=== PATIENT | female | born 1975 | race Caucasian/White ===

== ENCOUNTER → 2021-06-03 11:05 | Outpatient (BNVA) | payer MEDICAID, SELFPAY | PROVIDERS: Family Provider Nurse Practitioner; PCP Physician Assistant; Visit Provider Family Medicine | DX: M89.8X1 Other specified disorders of bone, shoulder (principal); I10 Essential (primary) hypertension; E11.9 Type 2 diabetes mellitus without complications; E78.5 Hyperlipidemia, unspecified | CPT/HCPCS: 73000; 80053; 80061; 83036; 83721 ==

== ENCOUNTER 2021-08-05 09:31 | Outpatient (CLI) | payer MEDICAID, SELFPAY ==
[2021-08-05 09:47] VITALS: BMI 34.4
--- NOTE | 2021-08-05 09:47 | ECG_ITS ---
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 Interpretive Statements NAME OF STUDY: EXERCISE SESTAMIBI STRESS TEST INDICATION: Chest pain, family history of coronary artery disease Baseline blood pressure of 127/80 mm Hg, heart rate of 85 beats per minute and oxygen saturation of 96%. EKG showed normal sinus rhythm, normal axis with nonspecific T wave inversion in lead III and V3. The patient exercised for 7 minutes 40 seconds on a standard Abraham protocol. Patient attained a maximum heart rate of 168 beats per minute(96% of the maximum predicted heart rate) with a blood pressure at the peak exercise of 195/75 mm Hg and oxygen saturation 95%. The EKG at the peak exercise revealed sinus tachycardia with no significant ST-T wave changes. Patient did not have any chest pain or any significant arrhythmis with the exercise. The study was terminated due to maximal effort. During the recovery phase, there were no new changes. Early in recovery blood pressure increased to 233/64 mmHg Blood pressure at the end of the recovery phase was 123/80 mm Hg with a heart rate of 102 beats per minute and oxygen saturation of 98%. CONCLUSION: 1. Normal EKG response to treadmill exercise. 2. No exercise-induced chest pain or cardiac arrhythmia 3. Excellent exercise tolerance, attained a maximum of 10.2 METs. Maximum VO2 of 35.7 mL/kg/min. 4. Baseline normal blood pressure with normal response to exercise. 5. Perfusion scan will be documented separately. Electronically Signed On 08-09-2021 15:50:36 CDT by Sandra Sunshine M.D. [id number]
--- NOTE | 2021-08-05 09:48 | NMCV_ITS ---
NM svitlana perf SPECT r/s* [id number] Maria Isabel Torres Age: 45 Gender: F : 1975 Exam Date: 08/05/2021 10:43 Ordering Phys: Sandra Sunshine MD ([email or web address]) Technologist: FELIPE Osorio Exam Location: [facility] Indications: CHEST PAIN STRESS TEST Please see separate stress test report in [facility] for full findings IMAGE PROTOCOL Rest/Stress 1 Exercise Day Radiopharmaceutical Dose (mCi) Administration Site Administered by Rest: Tc-99m 10.3 IV FELIPE Alcantara Sestamibi Stress:Tc-99m 32.7 IV FELIPE Alcantara Sestamibi Rest: 05-Aug-2021 60 Discovery 630 Stress: 05-Aug-2021 15 Discovery 630 Radiopharmaceutical was injected at 89 % maximum heart rate. Images obtained in supine and prone position. SPECT RESULTS Technical Quality: Excellent Raw Data Analysis: Normal Image Corrections: No attenuation or motion correction applied Summed Stress Score: 0 Summed Rest Score: 1 Summed Difference Score: 0 PERFUSION FINDINGS SPECT images demonstrate homogeneous tracer distribution throughout the myocardium. FUNCTIONAL RESULTS (calculated via Gated SPECT) Stress Image LV EF (%): 62 Stress EDV (mL):97 TID: 0.9 Stress ESV (mL):37 FUNCTIONAL FINDINGS: The left ventricle is normal in size. Transient Ischemia Dilatation of 0.9. There is normal left ventricular systolic function. The left ventricular ejection fraction is normal with a value of 62%. There is normal left ventricular wall thickening. Normal end diastolic and end systolic volumes. IMPRESSIONS 1. Myocardial perfusion imaging is normal. 2. Overall left ventricular systolic function is normal without regional wall motion abnormalities, LVEF=62%. 3. EKG portion of the study will be reported separately. Sandra Sunshine MD (Electronically Signed) Final Date: 09 August 2021 00:13 S
[2021-08-05 12:15] VITALS: BP 139/78; PULSE 100
== END 2021-08-05 09:32 | disposition home or self-care (01) ==
PROVIDERS: PCP Family Medicine; Visit Provider Internal Medicine Cardiovascular Disease
DX: R07.9 Chest pain, unspecified (principal); Z82.49 Family history of ischemic heart disease and other diseases of the circulatory system
CPT/HCPCS: 78452; 93017; A9500

== ENCOUNTER → 2021-09-22 12:50 | Outpatient (BNVA) | payer MEDICAID, SELFPAY | PROVIDERS: PCP Family Medicine; Visit Provider Emergency Medicine | DX: M89.8X1 Other specified disorders of bone, shoulder (principal); M25.512 Pain in left shoulder; M19.012 Primary osteoarthritis, left shoulder | CPT/HCPCS: 73000; 73030 ==

== ENCOUNTER → 2021-09-24 08:47 | Outpatient (BNVA) | payer MEDICAID, SELFPAY | PROVIDERS: PCP Family Medicine; Visit Provider Internal Medicine Cardiovascular Disease | DX: I25.9 Chronic ischemic heart disease, unspecified (principal); I10 Essential (primary) hypertension; Z82.49 Family history of ischemic heart disease and other diseases of the circulatory system; F17.200 Nicotine dependence, unspecified, uncomplicated | CPT/HCPCS: 99214 ==

== ENCOUNTER → 2021-09-29 08:57 | Outpatient (BNVA) | payer MEDICAID, SELFPAY | PROVIDERS: PCP Family Medicine; Visit Provider Family Medicine | DX: M19.042 Primary osteoarthritis, left hand (principal); M19.041 Primary osteoarthritis, right hand; K21.9 Gastro-esophageal reflux disease without esophagitis; I10 Essential (primary) hypertension; F32.A Depression, unspecified; M25.50 Pain in unspecified joint; E11.9 Type 2 diabetes mellitus without complications | CPT/HCPCS: 73130; 80048; 83036; 83735 ==

== ENCOUNTER 2021-11-08 08:56 | Outpatient (CLI) | payer MEDICAID, SELFPAY ==
--- NOTE | 2021-11-08 09:30 | MR_ITS ---
WS: [id number] MRI LEFT SHOULDER NONCONTRAST TECHNIQUE: Sagittal T2, coronal T1, T2 and proton density imaging. Axial gradient PDE imaging. CLINICAL INFORMATION: M89.8X1 - Other specified disorders of bone, shoulder COMPARISON: Radiograph September 22, 2021 FINDINGS: Moderate degenerative arthritis AC joint with edema. Small amount of subacromial/subdeltoid fluid. Sy novial thickening. Mild downsloping acromion with slight subacromial spurring. Mild chronic thinning of the distal supraspinatus. Normal infraspinatus. Normal teres minor. Intrasubstance partial tear in volving the distal subscapularis. Normal biceps tendon in the bicipital groove. Normal biceps labral anchor. Small amount of tendinopat hy intra-articular biceps tendon. Small lobulated paralabral cyst along the posterior superior glenoi d extending into the spinoglenoid notch. This measures approximately 1.7 x 0.8 x 0.5 cm. MR/MR shoulder LT wo con* [id number] IMPRESSION: 1. Moderate degenerative arthritis AC joint with mild edema and mild downslopi ng acromion. Slight subacromial spurring. 2. Chronic thinning of the supraspinatus which otherwise appears intact. 3. Intrasubstance tear involving the subscapularis with T2 signal abnormality. 4. Normal biceps tendon in the bicipital groove. 5. Tendinopathy involving the intra-articular biceps tendon. 6. Small lobulated paralabral cyst along the posterior superior glenoid extend ing into the spinoglenoid notch. This measures approximately 1.7 x 0.8 x 0.5 cm .
== END 2021-11-08 08:57 | disposition home or self-care (01) ==
PROVIDERS: PCP Family Medicine; Visit Provider Emergency Medicine
DX: M25.512 Pain in left shoulder (principal); M89.8X1 Other specified disorders of bone, shoulder; S46.012A Strain of muscle(s) and tendon(s) of the rotator cuff of left shoulder, initial encounter; M75.22 Bicipital tendinitis, left shoulder; M71.312 Other bursal cyst, left shoulder; X58.XXXA Exposure to other specified factors, initial encounter
CPT/HCPCS: 73221

== ENCOUNTER → 2021-12-28 10:12 | Outpatient (BNVA) | payer MEDICAID, SELFPAY | PROVIDERS: PCP Family Medicine; Visit Provider Family Medicine | DX: I10 Essential (primary) hypertension (principal); E11.9 Type 2 diabetes mellitus without complications; M19.041 Primary osteoarthritis, right hand; M19.042 Primary osteoarthritis, left hand; K21.9 Gastro-esophageal reflux disease without esophagitis; H65.90 Unspecified nonsuppurative otitis media, unspecified ear; M25.512 Pain in left shoulder | CPT/HCPCS: 80048; 83036 ==

== ENCOUNTER → 2022-01-26 11:02 | Outpatient (BNVA) | payer MEDICAID, SELFPAY | PROVIDERS: PCP Family Medicine; Visit Provider Family Medicine | DX: E87.6 Hypokalemia (principal) | CPT/HCPCS: 80048 ==

== ENCOUNTER 2022-02-02 07:24 | Day surgery (SDC) | payer MEDICAID, SELFPAY ==
[2022-01-31 10:45] VITALS: BMI 33.3
[2022-02-02 07:48] VITALS: BP 104/71; PULSE 94; RESP 18; TEMP 36.4; O2SAT 95
[2022-02-02] MEDS: sodium chloride 0.9% 1,000 ML 30 ML IV (07:52)
[2022-02-02 07:55] LABS: Glucose Point of Care 142 mg/dL (70-110)
--- NOTE | 2022-02-02 08:28 | W.PM.OPSFHP ---
Same Day Surgery H&P Indication for Procedure/HPI DATE OF PROCEDURE: February 02, 2022 CHIEF COMPLAINT/INDICATIONFOR SURGICAL PROCEDURE: Change in bowel habits PREOP DIAGNOSIS: Change in bowel habit PLANNED PROCEDURE: Operation Date: 02/02/22 09:00 Proposed Procedures p [address]140 EGD, [address] Colonoscopy K21.9,R19.7(Not Applicable) - Audie Beyer MD s Colonoscopy(Not Applicable) - Audie Beyer MD 12/20/2021 This is a pleasant 45 years old female patient referred to my practice with history of chronic diarrhea. Patient reports history of diarrhea, nonbloody in nature, has been going on for quite some time.? Patient denies history of recent travels, antibiotics, change in medications, questionable source of water, no history of sick contacts, no history of thyroid disorders.? Her gallbladder is removed.? She also complains of abdominal pain for the past month or so nothing seems to make it better is not being referred and has been more in the center of her abdomen. 02/02/2022 Patient comes today for diagnostic EGD and colonoscopy. ROS All systems have been reviewed negative except as for the above or per problem list. Medications/Allergies* Home Medications Medication Instructions Recorded Confirmed Type Vitamin D3 5,000 units PO DAILY 02/18/21 02/02/22 History Allergies/Adverse Reactions Allergy/AdvReac Type Severity Reaction Status Date / Time No Known Allergies Allergy Verified 02/02/22 08:29 Current Medications: Generic Name Dose Route Start Last Admin Trade Name Freq PRN Reason Stop Dose Admin Sodium Chloride 1,000 mls @ 30 mls/hr 02/02/22 07:45 02/02/22 07:52 Sodium Chloride 0.9% IV 30 mls/hr .Q24H WOO Administration Pertinent History/Comorbid Conditions* Medical History (Updated 12/21/21 @ 16:42 by Audie Beyer MD) Diabetes mellitus metfromin intolerance Dyslipidemia Family history of coronary artery disease occurring prior to 55 years of age GERD (gastroesophageal reflux disease) HTN (hypertension) Surgical History (Updated 02/18/21 @ 13:31 by Sandra Sunshine MD) History of hysteroscopy Hx of cholecystectomy Family History Family/Other, early 50's from heart problems Father, [place] x2, htn age 49 from [place] Social History Smoking and tobacco status: current every day smoker Alcohol intake: never Pertinent Exam Findings alert, oriented x 3, regular rate & rhythm and procedure specific exam findings (Abdominal exam nontender nondistended soft) Recommendations Surgery/Procedure today (EGD and colonoscopy with possible biopsy) Coding Level of Care Code Acute 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
--- NOTE | 2022-02-02 09:30 | ANES.PREANE2 ---
Pre-Anesthetic Assessment Height/Weight: Height 1.7 m Weight 96.615 kg Temp Pulse Resp BP Pulse Ox O2 Del Method 97.5 F L 94 18 104/71 95 02/02/22 07:48 02/02/22 07:48 02/02/22 07:48 02/02/22 07:48 02/02/22 07:48 02/02/22 07:48 Preop Diagnosis: Change in bowel habit Operation Date: 02/02/22 09:00 Proposed Procedures p 52651 EGD, 42406 Colonoscopy K21.9,R19.7(Not Applicable) - Audie Beyer MD s Colonoscopy(Not Applicable) - Audie Beyer MD Familial anesthetic complications: none Was Beta Rodriguez taken within 24 hours: N/A Was Clonidine taken within 24 hours: N/A Last intake: Intake Last Liquid Date 02/01/22 Last Liquid Time 23:55 Last Solid Date 01/31/22 Last Solid Time 22:00 Social Tobacco and No alcohol Exam alert, oriented x 3 and regular rate & rhythm Airway Submandibular: within normal limits Cervical ROM: within normal limits Mallampati: Class II Dentition: chipped Pulmonary Chronic Obstructive Pulmonary Disease CV/HEM Hypertension GI Gastroesophageal Reflux Disease Metabolic Diabetes Mellitus, Hyperlipidemia and Morbid Obesity [facility] Osteoarthritis/DJD Anesthetic Plan ASA status: 3 Anesthesia: MAC Medications/Allergies Home Medications Medication Instructions Recorded Confirmed Last Taken Type Vitamin D3 5,000 units PO DAILY 02/18/21 02/02/22 02/01/22 History duloxetine 60 mg capsule,delayed 120 mg PO DAILY 90 days #180 caps 09/29/21 02/02/22 02/01/22 Rx release (Cymbalta) loratadine 10 mg tablet 10 mg PO DAILY 90 days #90 tabs 09/29/21 02/02/22 02/01/22 Rx pantoprazole 40 mg tablet,delayed 40 mg PO BID 30 days #60 tabs 12/01/21 02/02/22 02/01/22 Rx release glipizide 2.5 mg tablet, extended 2.5 mg PO DAILY 30 days #30 tabs 12/28/21 02/02/22 02/01/22 Rx release 24 hr hydrochlorothiazide 25 mg tablet 37.5 mg PO DAILY 90 days #135 tabs 12/28/21 02/02/22 02/01/22 Rx ibuprofen 800 mg tablet 800 mg PO BID PRN Pain 90 days #90 12/28/21 02/02/22 02/01/22 Rx tabs pioglitazone 15 mg tablet (Actos) 15 mg PO DAILY 90 days #90 tabs 01/02/22 02/02/22 02/01/22 Rx potassium chloride 8 mEq 8 meq PO BID 30 days #60 caps 01/08/22 02/02/22 02/01/22 Rx capsule,extended release Allergies Allergy/AdvReac Type Severity Reaction Status Date / Time No Known Allergies Allergy Verified 02/02/22 08:29 Current Medications Generic Name Dose Route Start Last Admin Trade Name Freq PRN Reason Stop Dose Admin Sodium Chloride 1,000 mls @ 30 mls/hr 02/02/22 07:45 02/02/22 07:52 Sodium Chloride 0.9% IV 30 mls/hr .Q24H WOO Administration PFSH Anesthesia Medical History Diabetes mellitus metfromin intolerance Dyslipidemia Family history of coronary artery disease occurring prior to 55 years of age GERD (gastroesophageal reflux disease) HTN (hypertension) Surgical History History of hysteroscopy Hx of cholecystectomy Family History Father , [place] x2, htn age 49 from [place] No problems noted. Family/Other , early 50's from heart problems No problems noted. Social History Smoking and tobacco status: current every day smoker Alcohol intake: never Female Reproductive History Spontaneous abortions: No Data Anesthesia Cardiac Studies: Sestamibi Stress Test (Cardiology) 08/05/21
[2022-02-02 09:59] VITALS: BP 140/91; PULSE 96; RESP 16; TEMP 36.1; O2SAT 95
[2022-02-02 10:09] VITALS: BP 114/78; PULSE 90; RESP 16; O2SAT 95
--- NOTE | 2022-02-02 12:00 | ANE.PACU2 ---
Inpatient post-anesthesia follow up: Airway intact: Yes Vital signs: Temperature 97 F Pulse Rate 90 Respiratory Rate 16 Blood Pressure 114/78 Pulse Oximetry 95 Oxygen Delivery Me thod Room Air Oxygen Flow Rate 3 Fraction of Inspir ed Oxygen Hydration adequate: Yes Nausea and vomiting: No Pain level: 2 Mental status: Baseline
== END 2022-02-02 10:35 | disposition home or self-care (01) ==
PROVIDERS: PCP Family Medicine; Visit Provider Surgery
PROC: 0DJD8ZZ Inspection of Lower Intestinal Tract, Via Natural or Artificial Opening Endoscopic (ICD-10-PCS; CPT 45378; 2022-02-02 09:00)
PROC: 0DJ08ZZ Inspection of Upper Intestinal Tract, Via Natural or Artificial Opening Endoscopic (ICD-10-PCS; CPT 43235; 2022-02-02 09:00)
DX: R19.7 Diarrhea, unspecified (principal); K21.9 Gastro-esophageal reflux disease without esophagitis; Q27.30 Arteriovenous malformation, site unspecified; K57.30 Diverticulosis of large intestine without perforation or abscess without bleeding; K21.00 Gastro-esophageal reflux disease with esophagitis, without bleeding; K29.50 Unspecified chronic gastritis without bleeding; K63.5 Polyp of colon; J44.9 Chronic obstructive pulmonary disease, unspecified; I10 Essential (primary) hypertension; E11.9 Type 2 diabetes mellitus without complications; E78.5 Hyperlipidemia, unspecified; E66.01 Morbid (severe) obesity due to excess calories; Z68.33 Body mass index [BMI] 33.0-33.9, adult
CPT/HCPCS: 36416; 43239; 45385; 82274; 82962; 83630; 87493; 87506; 88305; 88342; J2704; J7030

== ENCOUNTER → 2022-04-27 08:53 | Outpatient (BNVA) | payer MEDICAID, SELFPAY | PROVIDERS: PCP Family Medicine; Visit Provider Family Medicine | DX: E11.9 Type 2 diabetes mellitus without complications (principal); I10 Essential (primary) hypertension; E78.5 Hyperlipidemia, unspecified | CPT/HCPCS: 80053; 80061; 83036 ==

== ENCOUNTER → 2022-05-31 08:56 | Outpatient (BNVA) | payer MEDICAID, SELFPAY | PROVIDERS: PCP Family Medicine; Visit Provider Family Medicine | DX: J02.9 Acute pharyngitis, unspecified (principal) | CPT/HCPCS: 87071; 87880 ==

== ENCOUNTER → 2022-10-27 08:35 | Outpatient (BNVA) | payer MEDICAID, SELFPAY | PROVIDERS: PCP Family Medicine; Visit Provider Family Medicine | DX: E11.9 Type 2 diabetes mellitus without complications (principal); I10 Essential (primary) hypertension | CPT/HCPCS: 80053; 83036 ==

== ENCOUNTER 2023-01-09 18:55 | Emergency (ER) | payer MEDICAID, SELFPAY ==
--- NOTE | 2023-01-09 18:59 | XRR_ITS ---
PROCEDURE INFORMATION: Exam: XR Left Shoulder Exam date and time: 01/09/2023 7:04 PM Age: 47 years old Clinical indication: Pain; Shoulder; Left; Additional info: Injury TECHNIQUE: Imaging protocol: Radiologic exam of the left shoulder. Views: 2 or more views. COMPARISON: MR shoulder LT wo con* [id number] 11/08/2021 10:07 AM FINDINGS: Bones/joints: There is questionable posterior dislocation of the left humeral head relative to the glenoid. There is probable fracture of the left glenoid of uncertain age. Soft tissues: Normal. XR/XR shoulder LT min 2V* [id number] IMPRESSION: Findings are suspicious for posterior dislocation of the left humeral head relative to the glenoid with associated fracture.If there is desire for further evaluation, a CT scan could be performed.
[2023-01-09 19:00] VITALS: BP 139/81; PULSE 118; RESP 18; TEMP 36.6; O2SAT 97; BMI 33.6
--- NOTE | 2023-01-09 19:07 | ED_ITS ---
HPI - Extremity Problem General: Chief complaint: Extremity Injury, Upper Stated complaint: left shoulder injury Time Seen by Provider: 01/09/23 19:00 Source: patient Mode of arrival: ambulatory Limitations: no limitations History of Present Illness: 47-year-old female states she has chronic left shoulder pain its been going on for years she states that she was stretching and felt a pop in her left shoulder started having increasing pain she is much worse with movement improved with rest pain is currently 5 out of 10 she does see an orthopedist in [place] for the pain. Associated symptoms: Deny chest pain, fever(s) or rash Review of Systems Const: Denies: fever(s), chills, body aches or change in appetite ENMT: Denies: throat pain or dental pain Card: Denies: chest pain Resp: Denies: dyspnea GI: Denies: abdominal pain, nausea, vomiting or diarrhea Musc: Reports: extremity pain; Denies: neck pain or back pain Skin/Breast: Denies: rash Neuro: Denies: headache(s) PFSH ED PFSH: Medical History Diabetes mellitus metfromin intolerance Dyslipidemia Family history of coronary artery disease occurring prior to 55 years of age GERD (gastroesophageal reflux disease) HTN (hypertension) Surgical History History of hysteroscopy Hx of cholecystectomy Family History Father , [place] x2, htn age 49 from [place] No problems noted. Family/Other , early 50's from heart problems No problems noted. Social History Smoking and tobacco/nicotine status: current every day tobacco/nicotine user Alcohol intake: never Substance/Drug Use: former Date of last use: Years ago Female Reproductive History: Spontaneous abortions: No Physical Exam Const: COMMON NORMALS: no acute distress, patient oriented x3 and healthy appearing HENMT: COMMON NORMALS: normocephalic and atraumatic HEAD & SCALP: normocephalic and atraumatic Neck/C-Spine: COMMON NORMALS: full ROM and supple Chest: COMMONS NORMALS: normal inspection of the chest Resp: COMMON NORMALS: normal respiratory effort Cardio: COMMON NORMALS: regular rate, regular rhythm and No murmurs present (Cardio) RATE: regular rate RHYTHM: regular rhythm GI: INSPECTION: Yes normal to inspection Extremity: COMMON NORMALS: normal to inspection and full ROM NARRATIVE EXTREMITY EXAM: Tenderness along left shoulder does have pain with range of motion but has full range of motion distal pulses sensation intact Neuro: COMMON NORMALS: patient oriented x3, moves all extremities and no focal motor deficits Psych: COMMON NORMALS: mental status grossly normal, Normal thought process present and cooperative THOUGHT PROCESS: Normal thought process present Skin: COMMON NORMALS: no rashes or lesions noted and no wounds GENERAL SKIN EXAM: no rashes or lesions noted Course Vital Signs: Vital signs: Vital Signs Temperature 98 F 01/09/23 19:00 Pulse Rate 118 H 01/09/23 19:00 Respiratory Rate 18 01/09/23 19:00 Blood Pressure 139/81 01/09/23 19:00 Pulse Oximetry 97 01/09/23 19:00 MDM - Extremity (Nontraumatic) Medical Decision Making Patient presents with left shoulder pain that is chronic in nature. She has no signs of any injuries on her x-ray no dislocation or fracture we will prescribe her Naprosyn she is to follow-up with orthopedics in [facility] if worsening she understands agrees to plan. Medical Records I reviewed the patient's medical records. XR interpretation done by ED provider, pending radiology final review ED provider radiology interpretation(s): xr shoulder: no acute abnormality Discharge Plan Discharge Patient Disposition: Home Clinical Impression: Left shoulder strain Condition: Stable Prescriptions: New Naprosyn 500 mg tablet 500 mg PO BID PRN (Reason: pain) Qty: 20 0RF No Action Vitamin D3 5,000 units PO DAILY hydrochlorothiazide 25 mg tablet 25 mg PO DAILY 90 Days Qty: 90 2RF diclofenac sodium 50 mg tablet,delayed release (DR/EC) 50 mg PO Q12H PRN (Reason: pain) 30 Days Qty: 60 5RF Rx Instructions: WITH FOOD glipizide 2.5 mg tablet extended release 24hr 2.5 mg PO DAILY 90 Days Qty: 90 1RF duloxetine [Cymbalta] 60 mg capsule,delayed release(DR/EC) 120 mg PO DAILY 90 Days Qty: 180 1RF pantoprazole 40 mg tablet,delayed release (DR/EC) 40 mg PO BID 90 Days Qty: 180 1RF methocarbamol 750 mg tablet 750 mg PO BID PRN (Reason: pain) 30 Days Qty: 60 5RF pioglitazone [Actos] 15 mg tablet 15 mg PO DAILY 90 Days Qty: 90 1RF potassium chloride 8 mEq capsule, extended release 8 meq PO BID 90 Days Qty: 180 1RF loratadine 10 mg tablet 10 mg PO DAILY 90 Days Qty: 90 1RF Rx Instructions: insurance requests 90 day supplies on this prednisone 10 mg tablet 10 mg PO DAILY 5 Days Qty: 5 0RF metoprolol succinate 25 mg tablet extended release 24 hr 25 mg PO DAILY 90 Days Qty: 90 3RF Discharge Orders: Discharge ED (Routine); Ordered 01/09/23 Ordered By: Brii Liu Referrals: Desi Vee MD [Primary Care Provider] - 1-3 days Discharge Diet: Advance as tolerated Discharge Activity: Resume usual activity Patient Instructions: Shoulder Sprain (ED) Coding Level of Care Code 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
[2023-01-09] MEDS: HYDROcodone-acetaminophen 5-325 mg Tablet 1 TAB PO (19:11)
== END 2023-01-09 19:39 | disposition home or self-care (01) ==
PROVIDERS: Emergency Provider Emergency Medicine; PCP Family Medicine
DX: S46.912A Strain of unspecified muscle, fascia and tendon at shoulder and upper arm level, left arm, initial encounter (principal); Z79.84 Long term (current) use of oral hypoglycemic drugs; Z72.0 Tobacco use; E11.9 Type 2 diabetes mellitus without complications; E78.5 Hyperlipidemia, unspecified; I10 Essential (primary) hypertension; X50.9XXA Other and unspecified overexertion or strenuous movements or postures, initial encounter
CPT/HCPCS: 73030; 99283

== ENCOUNTER → 2023-05-16 08:52 | Outpatient (BNVA) | payer MEDICAID, SELFPAY | PROVIDERS: PCP Family Medicine; Visit Provider Family Medicine | DX: E11.9 Type 2 diabetes mellitus without complications (principal) | CPT/HCPCS: 80053; 80061; 83036 ==

== ENCOUNTER → 2023-08-15 08:24 | Outpatient (BNVA) | payer MEDICAID, SELFPAY | PROVIDERS: PCP Family Medicine; Visit Provider Physician Assistant | DX: M75.42 Impingement syndrome of left shoulder (principal); M19.012 Primary osteoarthritis, left shoulder | CPT/HCPCS: 73030 ==

== ENCOUNTER 2023-09-21 05:49 | Day surgery (SDC) | payer MEDICAID, SELFPAY ==
[2023-09-21] VITALS (20 sets, daily range): BP systolic 90–177; BP diastolic 61–112; PULSE 82–122; RESP 17–41; TEMP 36.1–36.3; O2SAT 94–100; BMI 35.6
[2023-09-21] MEDS: sodium chloride 0.9% 1,000 ML 30 ML IV (06:13)
[2023-09-21] MEDS: ketorolac 30 mg/mL INJ IVP (06:17)
[2023-09-21] MEDS: acetaminophen 1,000 MG/100 ML PIGGYBACK 400 MG IV (06:17)
[2023-09-21] MEDS: scopolamine 1.5 Patch 1 PATCH TRANSDERMA (06:19)
[2023-09-21 06:33] LABS: Glucose Point of Care 213 mg/dL (70-110)
--- NOTE | 2023-09-21 06:50 | ANES.PREANE2 ---
Pre-Anesthetic Assessment Height/Weight: Height 1.65 m Weight 97.069 kg Temp Pulse Resp BP Pulse Ox O2 Del Method 97.2 F L 94 18 165/91 96 Room Air 09/21/23 06:04 09/21/23 06:04 09/21/23 06:04 09/21/23 06:04 09/21/23 06:04 09/21/23 06:04 Operation Date: 09/21/23 07:00 Proposed Procedures p Shoulder Arthroscopy(Left) - Graham Tyrrell, DO s AC Joint Resection(Left) - Graham Bubba, DO s Subacromial Decompression(Left) - Graham Bubba, DO s possible rotator cuff debridement versus repair(Left) - Graham Bubba, DO s possible cyst excision(Left) - Graham Bubba, DO s Labral Debridement(Left) - Graham Tyrrell, DO Familial anesthetic complications: Can wake up mean Was Beta Rodriguez taken within 24 hours: N/A Was Clonidine taken within 24 hours: N/A Last intake: Intake Last Liquid Date 09/20/23 Last Liquid Time 23:00 Last Solid Date 09/20/23 Last Solid Time 18:00 Social Tobacco and No alcohol Airway Mallampati: Class III CV/HEM Hypertension GI Gastroesophageal Reflux Disease Metabolic Diabetes Mellitus and Morbid Obesity Anesthetic Plan ASA status: 3 Anesthesia: General and Regional (specify below) Risk of > 500 ml blood loss (7ml/kg in children): No Medications/Allergies Home Medications Medication Instructions Recorded Confirmed Last Taken Type Vitamin D3 5,000 units PO DAILY 02/18/21 09/20/23 02/01/22 History alcohol swabs 1 pad topical TID PRN as needed to 05/16/23 09/20/23 09/20/23 Rx check blood sugar 30 days #100 ea blood sugar diagnostic (Blood #50 ea 05/16/23 09/19/23 Unknown Rx Glucose Test strips) blood-glucose meter (Blood Glucose #1 ea 05/16/23 09/19/23 Unknown Rx Monitoring kit) diclofenac sodium 50 mg 50 mg PO Q12H PRN pain 90 days 05/16/23 09/20/23 09/14/23 Rx tablet,delayed release #180 tabs duloxetine 60 mg capsule,delayed 120 mg (2 x 60 mg) PO DAILY 90 05/16/23 09/20/23 09/20/23 Rx release (Cymbalta) days #180 caps glipizide 2.5 mg tablet, extended 2.5 mg PO DAILY 90 days #90 tabs 05/16/23 09/20/23 09/07/23 Rx release 24 hr hydrochlorothiazide 25 mg tablet 25 mg PO DAILY 90 days #90 tabs 05/16/23 09/20/23 09/20/23 Rx lancets #100 ea 05/16/23 09/19/23 Unknown Rx loratadine 10 mg tablet 10 mg PO DAILY 90 days #90 tabs 05/16/23 09/20/23 09/19/23 Rx methocarbamol 750 mg tablet 750 mg PO BID PRN pain 90 days 05/16/23 09/20/23 09/19/23 Rx #180 tabs metoprolol succinate 25 mg 25 mg PO DAILY 90 days #90 tabs 05/16/23 09/20/23 09/19/23 Rx tablet,extended release 24 hr pantoprazole 40 mg tablet,delayed 40 mg PO BID 90 days #180 tabs 05/16/23 09/20/23 09/20/23 Rx release pioglitazone 15 mg tablet (Actos) 15 mg PO DAILY 90 days #90 tabs 05/16/23 09/20/23 09/07/23 Rx potassium chloride 8 mEq 8 meq PO BID 90 days #180 caps 05/16/23 09/20/23 09/20/23 Rx capsule,extended release lidocaine 5 % topical patch 1 patch topical DAILY 30 days #30 07/25/23 09/20/23 09/18/23 Rx ea insulin glargine 100 unit/mL (3 10 unit (0.1 mL) SUBCUT DAILY #15 09/14/23 09/20/23 09/19/23 Rx mL) subcutaneous pen (Lantus mL Solostar U-100 Insulin) Allergies Allergy/AdvReac Type Severity Reaction Status Date / Time No Known Allergies Allergy Verified 09/21/23 06:02 Current Medications Generic Name Dose Route Start Last Admin Trade Name Freq PRN Reason Stop Dose Admin Sodium Chloride 1,000 mls @ 30 mls/hr 09/21/23 06:00 09/21/23 06:13 Sodium Chloride 0.9% IV 09/22/23 05:59 30 mls/hr .Q24H WOO Administration PFSH Anesthesia Medical History Dyslipidemia Family history of coronary artery disease occurring prior to 55 years of age Diabetes mellitus metfromin intolerance GERD (gastroesophageal reflux disease) HTN (hypertension) Surgical History Hx of cholecystectomy History of hysteroscopy Family History Father , [place] x2, htn age 49 from [place] No problems noted. Family/Other , early 50's from heart problems No problems noted. Social History Smoking and tobacco/nicotine status: current every day tobacco/nicotine user Alcohol intake: never Substance/Drug Use: former Date of last use: Years ago Female Reproductive History Spontaneous abortions: No Data Anesthesia Cardiac Studies: Sestamibi Stress Test (Cardiology) 08/05/21
--- NOTE | 2023-09-21 06:51 | ANES.PROC ---
Anesthesia Procedures Procedure/Date: 09/21/23 Nerve Block ^: Nerve Block 1: Main Anesthesia: general anesthesia Time Out Performed: Yes Consent: requested by attending/covering physician, from patient, from other, risks and benefits reviewed and patient agrees to proceed Nerve block location: interscalene (L) Anesthesia monitors applied: pulse oximetry, EKG, BP cuff and oxygen Nerve block position: semi sitting Anesthetic Used: ropivicaine 0.5% (30 ml) and with decadron (4 mg) Ultrasound used to: recognize landmarks, visualize and ID brachial plexus, in supraclavicular region and visualize and ID interscalene groove Nerve Stimulator Used?: No Interscalene/Femoral BLK: 2 stimuplex 22 g needle used for position and inplane approach, visualize local anesthetic spread and no vascular puncture identified Injection: neg aspiration of heme Patient Tolerated Procedure: well Complications: none
--- NOTE | 2023-09-21 06:53 | SUR.PREOP ---
Time out was completed at bedside by Dr Lan. Shoulder block was administered to left shoulder. Patient tolerated well. VS within NL
--- NOTE | 2023-09-21 07:00 | W.PM.OPSFHP ---
Same Day Surgery H&P Indication for Procedure/HPI DATE OF PROCEDURE: September 21, 2023 CHIEF COMPLAINT/INDICATIONFOR SURGICAL PROCEDURE: Left shoulder AC joint arthritis, subacromial impingement rotator cuff tear labral tear, paralabral cyst, biceps tendinitis PREOP DIAGNOSIS: Left shoulder AC joint arthritis, subacromial impingement rotator cuff tear PLANNED PROCEDURE: Operation Date: 09/21/23 07:00 Proposed Procedures p Shoulder Arthroscopy(Left) - Graham Bubba, DO s AC Joint Resection(Left) - Graham Bubba, DO s Subacromial Decompression(Left) - Graham [place], DO s possible rotator cuff debridement versus repair(Left) - Graham [place], DO s possible cyst excision(Left) - Graham Bubba, DO s Labral Debridement(Left) - Graham Bubba, DO Medications/Allergies* Home Medications Medication Instructions Recorded Confirmed Type Vitamin D3 5,000 units PO DAILY 02/18/21 09/20/23 History Allergies/Adverse Reactions Allergy/AdvReac Type Severity Reaction Status Date / Time No Known Allergies Allergy Verified 09/21/23 06:02 Current Medications: Generic Name Dose Route Start Last Admin Trade Name Freq PRN Reason Stop Dose Admin Sodium Chloride 1,000 mls @ 30 mls/hr 09/21/23 06:00 09/21/23 06:13 Sodium Chloride 0.9% IV 09/22/23 05:59 30 mls/hr .Q24H WOO Administration Pertinent History/Comorbid Conditions* Medical History (Updated 08/18/23 @ 13:07 by RIGO Cifuentes) Dyslipidemia Family history of coronary artery disease occurring prior to 55 years of age Diabetes mellitus metfromin intolerance GERD (gastroesophageal reflux disease) HTN (hypertension) Surgical History (Updated 02/18/21 @ 13:31 by Sandra Sunshine MD) Hx of cholecystectomy History of hysteroscopy Family History Family/Other, early 50's from heart problems Father, [place] x2, htn age 49 from [place] Social History Smoking and tobacco/nicotine status: current every day tobacco/nicotine user Alcohol intake: never Substance/Drug Use: former Date of last use: Years ago Pertinent Exam Findings alert, oriented x 3, operative site marked and procedure specific exam findings Please refer to detailed orthopedic examination on 08/15/2023: left Shoulder -Biceps tendon tenderness and AC joint tenderness -Range of motion-full active ROM with pain at end range of motion -Rotator cuff strength-internal and external 5/5 strength -Jobes test-negative -Speed's Test-positive -O'Briens test-positive -Shabazz impingement-positive -Empty can test-negative -Radial pulse 2+, normal cap refill under 2 seconds and patient can wiggle fingers. -Sensation to hand intact Patient had received a block already this morning Recommendations Surgery/Procedure today Other Plans: Plan to proceed to the OR today for left shoulder diagnostic and surgical arthroscopy with AC joint resection, subacromial decompression,possible rotator cuff debridement versus repair, possible labral debridement, possible cyst excision, possible biceps tenotomy versus tenodesis. Patient understands the ins and outs of procedure the risk benefits complication alternatives of surgery and through shared decision-making elects proceed with surgical intervention. All questions answered at this time. Coding Level of Care Code Acute Code for Foster Fwcarolee
[2023-09-21] MEDS: ceFAZolin 2,000 MG in sodium chloride 0.9% (plus) 50 ML 100 MG IV (07:04)
[2023-09-21] MEDS: EPINEPHrine 1 mg/mL INJ XX (08:04)
--- NOTE | 2023-09-21 08:45 | W.PM.BPON ---
Date of Procedure: [09/21/2023] Surgeon: Graham Mac DO Payloader Machine Operator(s): Clay Mac PA-C Procedure(s) performed: Left shoulder diagnostic and surgical arthroscopy with biceps tenodesis Left shoulder diagnostic and surgical arthroscopy with AC joint resection (distal clavicle excision) Left shoulder diagnostic and surgical arthroscopy with subacromial decompression (acromioplasty and bursectomy) Left shoulder diagnostic and surgical arthroscopy with rotator cuff debridement Left shoulder diagnostic and surgical arthroscopy with labral debridement Left shoulder diagnostic and surgical arthroscopy with paralabral cyst decompression Left shoulder diagnostic and surgical arthroscopy with glenohumeral joint chondroplasty Findings of the procedure(s): Patient was found to have a SLAP tear and paralabral cyst. Underwent paralabral cyst decompression and directly by elevation given age and wearing of the bicep tendon elected to perform a biceps tenodesis she subsequently underwent rotator cuff debridement labral debridement subacromial decompression AC joint resection as well as glenohumeral joint chondroplasty she was found to have grade 2-3 chondromalacia she tolerated procedure without issues or complications. Estimated blood loss: [5 mL] Specimen(s) removed: None Post-operative diagnosis: Left shoulder biceps tendon tear/superiorlabral tear, AC joint arthritis, subacromial impingement, partial tearing subscapularis tendon, glenohumeral joint chondromalacia, paralabral cyst
--- NOTE | 2023-09-21 08:51 | P.OP_ITS ---
Operative Report Date of procedure: September 21, 2023 Surgeon: Graham Mac DO Procedure: Preoperative diagnosis: Left shoulder AC joint arthritis, subacromial impingement rotator cuff tear labral tear, paralabral cyst, biceps tendinitis Post-op diagnosis:? Left shoulder biceps tendon tear/superiorlabral tear, AC joint arthritis, subacromial impingement, partial tearing subscapularis tendon, glenohumeral joint chondromalacia, paralabral cyst Procedure done: Left shoulder diagnostic and surgical arthroscopy with biceps tenodesis Left shoulder diagnostic and surgical arthroscopy with AC joint resection (distal clavicle excision) Left shoulder diagnostic and surgical arthroscopy with subacromial decompression (acromioplasty and bursectomy) Left shoulder diagnostic and surgical arthroscopy with rotator cuff debridement Left shoulder diagnostic and surgical arthroscopy with labral debridement Left shoulder diagnostic and surgical arthroscopy with paralabral cyst decompres bentley Left shoulder diagnostic and surgical arthroscopy with glenohumeral joint chondroplasty Surgeon: Graham Mac DO Estimated blood loss: 5 mL IV fluids: See anesthesia record Implants: Arthrex 2.9 BC loop and tack biceps tenodesis kit with swivel lock Complications: None Condition: stable Disposition: same day Brief History: Patient been seen and worked up in the outpatient setting for Left?shoulder?pain.? Pt had an MRI which showed findings below.? Patient's failed conservative treatment and has weakness and persistent pain despite conservative treatment..? We talked about treatment options far as nonoperative and operative intervention..? We talked about risk benefits complication alternatives surgical nonsurgical treatment options.? Understanding risk of surgery pt agrees to proceed with surgical intervention.? All questions have been answered at this time.? Patient elects proceed with surgery and consent obtained in office. MR/MR shoulder LT wo con* [id number] IMPRESSION: 1. Moderate degenerative arthritis AC joint with mild edema and mild downsloping acromion. Slight subacromial spurring. 2. Chronic thinning of the supraspinatus which otherwise appears intact. 3. Intrasubstance tear involving the subscapularis with T2 signal abnormality. 4. Normal biceps tendon in the bicipital groove. 5. Tendinopathy involving the intra-articular biceps tendon. 6. Small lobulated paralabral cyst along the posterior superior glenoid extending into the spinoglenoid notch. This measures approximately 1.7 x 0.8 x 0.5 cm. Procedure: Patient seen evaluated in the preoperative holding area.? Consent reviewed and signed with patient.? Once again reviewed patient's MRI results as well as? planned surgical intervention.? Correct extremity marked.? Patient seen evaluated by anesthesia department received regional anesthesia.? Once ready for surgery was taken back to the operative suite.? Patient then subsequently underwent anesthesia per the anesthesia department was transported onto the OR table.? Patient was then placed into a lateral decubitus position with a beanbag and was appropriately secured to the bed.? All bony prominences well-padded.? Patient then had the Left upper extremity was then prepped and draped in standard orthopedic fashion.? Patient received appropriate preoperative antibi otics.? Final timeout performed. The Left upper extremity was then held in hanging from traction utilizing sterile technique.? Next started with standard diagnostic and surgical arthroscopy with posterior portal position introduced arthroscope into the glenohumeral joint.? Visualized the glenohumeral joint I then introduced a spinal needle within the rotator cuff interval to confirm appropriate anterior portal placement.? Once this was confirmed I then made my small incision and then introduced my arthroscopic shaver into the glenohumeral joint.? After flushing the joint fluid, was clearly evident patient had biceps tendon tearing as well as Superior labral tear. Patient had appreciable unstable biceps anchor most pronounced in the superior labrum. Given there appears to be healthy intra-articular tendon plan was for an intra-articular biceps tenodesis at the superior portion as it enters the intertubercular groove. Prior to performing bicep tenodesis reviewed MRI imaging and patient on the superior aspect tracking slightly posteriorly had the paralabral cyst. I did an indirect paralabral cyst decompression utilizing a labral elevator and bluntly running this along the superior labral tear. This was taken understanding directly and carefully on bone and subsequently fluid from the cyst extruded out of this area and was suctioned and an indirect decompression was performed. Again visualized the labrum patient had a superior labral tear anteriorly there was a small appearing Irvin complex/variant. Proceeding with a bicep tenodesis I started with thermal wand introduced into the rotator interval. I then release of the rotator interval to have appropriate visualization and the ability to perform biceps tenodesis. At this point I established a purple passport cannula which was introduced. Next I performed an Arthrex loop and tack biceps tenodesis. Passer was then made around the tendon luggage tag stitch around and then thru the tendon and around I then utilized a thermal wand to release the biceps tendon at the anchor to perform with tenotomy. I then loaded with suture onto an Arthrex 4.75 swivel lock suture anchor. A punch was then placed in appr opriate position at the entry point into the intertubercular groove just superior to the subscapularis tendon. Punch was then introduced to the appropriate depth. The suture loaded on the swivel lock was then advanced held under appropriate tension and shoulder lock anchor was then advanced and had excellent fixation. Excess suture was then cut biceps tenodesis was complete. I then utilized a thermal wand to seal the edges of the superior labrum. Next I evaluated the subscapularis tendon was grossly intact there was some small fraying of this and performed a gentle debridement of the subscapularis tendon. ?Next there was labral tearing at biceps anchor and circumferential.? ? I then subsequently utilized a a arthroscopic shaver and thermal wand to perform a labral debridement.? This point time I then visualized the glenohumeral joint.? The glenohumeral joint was found to have grade 2-3? chondromalacia throughout.? Infrapatellar pouch was free of loose bodies from viewing the posterior portal.? Next a visualized the rotator cuff superiorly no evidence of rotator cuff tear patient had negative escape bubble sign. ?This completed my work within the glenohumeral joint all fluid was suctioned free of the joint.? ?Next I reintroduced the arthroscope posteriorly And went to the subacromial space.? I established my lateral working portal at the site of which my spinal needle was marking of the rotator cuff tear.? Thermal wand was then introduced laterally and then I subsequently performed extensive bursectomy of the subacromial space.? Patient had a large anterior bone spur.? At this point time I proceeded with my AC joint resection thermal wand was used and track to the anterior edge of the acromion and then tracked all the way to the AC joint.? Once identified the AC joint this was very arthritic in nature.? Thermal wand was placed anteriorly to establish appropriate plane for AC joint resection.? Once appropriate margins and anterior inferior and anterior capsule was released I then introduced arthroscopic shaver and a bur and performed AC joint resection of both the acromion to cope plane at the AC joint and a distal clavicle resection was then performed totaling 1 cm in size and was confirmed.? This completed my AC joint resection and I then introduced the arthroscopic shaver laterally while continuing to view posteriorly.? I then performed an acrom ioplasty to complete my subacromial decompression. Next I then visualized the rotator cuff from the posterior portal lateral portal and patient was found to have no evidence of rotator cuff tear superiorly in the bursal region. Shoulder was taken through range of motion no evidence of tears or partial tears noted. Next I then introduced the arthroscopic shaver posteriorly to complete my subacromial decompression appropriate complaining all the way up to the lateral edge of the acromion.? This completed the surgery.? All fluid was suctioned from the?shoulder.? All instruments were removed.? The lateral incision was then closed with nylon stitches.? As well as the portal sites closed with portal nylon stitches.? Xeroform 4 x 4's ABD and tape was then applied to the Left?shoulder?and was placed into a?shoulder?abduction pillow sling for bicep tenodesis.? Patient was then awakened from anesthesia and then taken back to PACU in stable condition.? Patient tolerated procedure without any issues. Disposition: Patient taken back in stable condition recovering well.? Dressings on in place clean dry and intact.? Will be nonweightbearing to the Left upper extremity.? Follow bicep tenodesis protocol.? Patient to follow-up with me in the office in 2 weeks.? Patient will receive appropriate discharge instruction as well as pain medication postoperatively.? All questions answered.? We will contact the office for any questions or concerns.
--- NOTE | 2023-09-21 09:40 | XR_ITS ---
WS: [id number] PORTABLE CHEST HISTORY: post intubation COMPARISON: Shoulder radiograph 08/15/2023 Endotracheal tube in good position ending 2 to 3 cm above the delvis. Lung volumes are decreased with moderate pulmonary edema. No edema was noted in the LEFT upper lobe o n the prior to shoulder radiograph. This appears to be a new acute finding. No pleural effusion or pn eumothorax. Cardiac size: Normal. Mediastinum/Aorta: Normal mediastinum. No osseous abnormality seen. XR/XR chest 1V portable [id number] IMPRESSION: 1. Endotracheal tube in good position. 2. Acute moderate pulmonary edema.
[2023-09-21 10:11] LABS: ABG PCO2 54.6 mmHg (35-45); Alveolar-Arterial Oxygen Gradi 73.5 mmHg (5-10); Arterial Blood Gas Hematocrit 47.9 % (37-47); Base Excess ABG -11.2 mmol/L (-2.0-2.0); Blood Gas Allen Test Pos; Blood Gas Operator Identificat CAK; Blood Gas Sample Site Brachial, right; Blood Gas Sample Type Arterial; Blood Gas Tidal Volume 0.48; Carboxyhemoglobin 6.4 %THgb (0.4-20.1); HCO3 ABG 18.4 mmol/L (22-26); HGB O2 Sat 87.4 % (95-100); Ionized Calcium Level - ABG 1.2 mmol/L (1.1-1.4); Methemoglobin 0.4 % (0.4-1.5); Oxygen Device VENT; Oxygen Saturation ABG 93.8; PO2 ABG 86.4 mmHg (80.0-100.0); PO2 FiO2 Ratio Arterial Blood 86; Potassium Level - ABG 4.1 mmol/L (3.5-5.0); Total Hemoglobin 15.6 g/dL (12-16)
--- NOTE | 2023-09-21 11:15 | PM.PACU ---
PACU note Narrative: Patient was originally taken to PACU in stable condition she ended up getting agitated and had decrease in mental decline as well as started to drop in her O2 saturations. Please refer to anesthesia's PACU note and management for detailed care. Patient was subsequently had to be reintubated was placed on a ventilator subsequently responded well to ventilation and oxygenation and was subsequently extubated and PACU. At this point in time she is continually being observed and will have a likely recheck ABG per the anesthesia department and if is okay will be stable for discharge home today. She is alert and oriented she is responsive her block still in effect she is breathing well on her own. Family is at bedside there planning to check a ABG and as long as this is okay and cleared by anesthesia she will discharge today. Exam: awake and other (Left upper extremity block still on affect she has some subtle ability to wiggle fingers)
[2023-09-21 11:17] LABS: ABG PCO2 36.9 mmHg (35-45); ABG PH Result 7.36 (7.35-7.45); Alveolar-Arterial Oxygen Gradi 5.9 mmHg (5-10); Arterial Blood Gas Hematocrit 46.3 % (37-47); Base Excess ABG -4.1 mmol/L (-2.0-2.0); Blood Gas Allen Test Pos; Blood Gas Operator Identificat CAK; Blood Gas Sample Site Radial, left; Blood Gas Sample Type Arterial; Carboxyhemoglobin 4.5 %THgb (0.4-20.1); HCO3 ABG 20.8 mmol/L (22-26); Ionized Calcium Level - ABG 1.2 mmol/L (1.1-1.4); Methemoglobin 0.2 % (0.4-1.5); Oxygen Device ROOM AIR; Oxygen Saturation ABG 91.3; PO2 ABG 59.5 mmHg (80.0-100.0); PO2 FiO2 Ratio Arterial Blood 283; Potassium Level - ABG 4.1 mmol/L (3.5-5.0); Total Hemoglobin 15.1 g/dL (12-16)
[2023-09-21] MEDS: HYDROcodone-acetaminophen 5-325 mg Tablet 1 TAB PO (11:42)
--- NOTE | 2023-09-21 11:45 | ANE.PACU2 ---
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 ABG revealed mixed acidosis. Sugammadex and bicarb given. CXR showing mod pulm edema. Patient woke up strongly, following all commands, extubated. Alert, oriented, no distress, HD stable, satting 96 to 97% on room air in phase II. Discharged with instructions to return to ER if patient develops any SOB. Patient in agreement with plan.
== END 2023-09-21 11:47 | disposition home or self-care (01) ==
PROVIDERS: Anesthesiology; PCP Family Medicine; Visit Provider Student in an Organized Health Care Education/Training Program
PROC: (CPT 29805; principal; 2023-09-21 07:00)
PROC: 0RSH0ZZ Reposition Left Acromioclavicular Joint, Open Approach (ICD-10-PCS; CPT 29823; 2023-09-21 07:00)
PROC: (CPT 29826; 2023-09-21 07:00)
PROC: 0LQ24ZZ Repair Left Shoulder Tendon, Percutaneous Endoscopic Approach (ICD-10-PCS; CPT 29827; 2023-09-21 07:00)
PROC: (CPT 29823; 2023-09-21 07:00)
PROC: (CPT 29823; 2023-09-21 07:00)
PROC: (CPT 23430; 2023-09-21 07:00)
DX: M19.012 Primary osteoarthritis, left shoulder (principal); M25.812 Other specified joint disorders, left shoulder; M75.102 Unspecified rotator cuff tear or rupture of left shoulder, not specified as traumatic; M71.312 Other bursal cyst, left shoulder; M75.22 Bicipital tendinitis, left shoulder; I10 Essential (primary) hypertension; K21.9 Gastro-esophageal reflux disease without esophagitis; E11.9 Type 2 diabetes mellitus without complications; Z79.4 Long term (current) use of insulin; E66.01 Morbid (severe) obesity due to excess calories; Z68.35 Body mass index [BMI] 35.0-35.9, adult; F17.200 Nicotine dependence, unspecified, uncomplicated; Z82.49 Family history of ischemic heart disease and other diseases of the circulatory system
CPT/HCPCS: 29823; 29824; 29826; 29827; 29828; 36416; 36600; 71045; 80051; 82330; 82805; 82962; 94002; 94799; C1713; J0131; J0171; J0690; J1100; J1885; J2250; J2371; J2405; J2704; J2710; J2795; J3010; J3490; J7030

== ENCOUNTER → 2023-11-06 11:38 | Outpatient (BNVA) | payer MEDICAID, SELFPAY | PROVIDERS: PCP Family Medicine; Visit Provider Internal Medicine Cardiovascular Disease | DX: R07.9 Chest pain, unspecified (principal) | CPT/HCPCS: 93005 ==

== ENCOUNTER → 2024-01-01 08:43 | Outpatient (BNVA) | payer MEDICAID, SELFPAY | PROVIDERS: PCP Family Medicine; Visit Provider Family Medicine | DX: E11.9 Type 2 diabetes mellitus without complications (principal); E78.5 Hyperlipidemia, unspecified | CPT/HCPCS: 80053; 80061; 83036; 85025 ==

== ENCOUNTER → 2024-01-05 09:34 | Outpatient (BNVA) | payer MEDICAID, SELFPAY | PROVIDERS: PCP Family Medicine; Visit Provider Physician Assistant | DX: G56.02 Carpal tunnel syndrome, left upper limb; M65.331 Trigger finger, right middle finger; G56.22 Lesion of ulnar nerve, left upper limb | CPT/HCPCS: 73110 ==

== ENCOUNTER 2024-02-01 12:36 | Outpatient (CLI) | payer MEDICAID, SELFPAY ==
--- NOTE | 2024-02-01 12:40 | MM_ITS ---
WS: [id number] SCREENING DIGITAL BREAST TOMOSYNTHESIS MAMMOGRAM WITH CAD HISTORY: Z12.39 - Encounter for other screening for malignant neop... COMPARISON: 02/14/2020, 03/18/2022, 02/02/2021 Bilateral CC and MLO with tomosynthesis and synthetic mammography submitted. Computer aided detection analyzed. Breast composition: The breasts are heterogeneously dense, which may obscure small masses. Partially obscured lobulated mass of increased density in the posterior LEFT breast just lateral to the nipple line measures 1.2 x 1.2 x 1.0 cm. This mass is just below the nipple line, 4-5 o'clock. Mass not defi nitely seen on the prior studies. There is a prior biopsy clip in the anterior LEFT breast. Small eddie ign calcifications. MM/MM scr BI tomosynthesis [id number] IMPRESSION: BI-RADS: 0 - Incomplete: Need additional imaging evaluation FOLLOW UP: Need Additional Imaging LEFT breast: Spot compression views (CC and MLO). True ML. Ultrasound to follow if abnormality persists.
== END 2024-02-01 12:37 | disposition home or self-care (01) ==
LOC: MOBLMAM 12:37
PROVIDERS: PCP Family Medicine; Visit Provider Family Medicine
DX: Z12.31 Encounter for screening mammogram for malignant neoplasm of breast (principal); R92.333 Mammographic heterogeneous density, bilateral breasts; N63.42 Unspecified lump in left breast, subareolar; R92.1 Mammographic calcification found on diagnostic imaging of breast
CPT/HCPCS: 77063; 77067

== ENCOUNTER 2024-03-25 11:09 | Outpatient (CLI) | payer MEDICAID, SELFPAY ==
--- NOTE | 2024-03-25 11:11 | US_ITS ---
WS: [id number] ADDITIONAL VIEWS LEFT MAMMOGRAM with tomosynthesis. LEFT BREAST ULTRASOUND HISTORY: R92.8 - Other abnormal and inconclusive findings on diagn... COMPARISON: 02/01/2024, 03/18/2022 LEFT MAMMOGRAM: Spot compression views and true ML with tomosynthesis and sympathetic mammography. Slightly high density irregular mass with indistinct margins noted in the posterior breast near 6:00. Mass measures 1.2 x 2.0 x 1.1 cm. No calcifications. No distortion. LEFT BREAST ULTRASOUND 2-D and color Doppler imaging submitted. Hypoechoic mass is identified retroareolar measuring 1.0 x 1.1 x 0.7 cm. There are a few low-level ec hoes with minimal through transmission. This is probably due to the deep position of this mass. No in creased vascularity. US/US breast LT limited* [id number] IMPRESSION: BI-RADS: 3 - Probably Benign FOLLOW UP: 6 Month Follow-up Complex cyst LEFT breast retroareolar against the chest wall. There are a few l ow-level echoes throughout this mass. Favor this is probably a complex cyst but difficult to image accurately due to its position. Recommend 6-month LEFT [address] ultrasound follow-up to ensure no interval change.
--- NOTE | 2024-03-25 11:30 | MM_ITS ---
WS: [id number] ADDITIONAL VIEWS LEFT MAMMOGRAM with tomosynthesis. LEFT BREAST ULTRASOUND HISTORY: R92.8 - Other abnormal and inconclusive findings on diagn... COMPARISON: 02/01/2024, 03/18/2022 LEFT MAMMOGRAM: Spot compression views and true ML with tomosynthesis and sympathetic mammography. Slightly high density irregular mass with indistinct margins noted in the posterior breast near 6:00. Mass measures 1.2 x 2.0 x 1.1 cm. No calcifications. No distortion. LEFT BREAST ULTRASOUND 2-D and color Doppler imaging submitted. Hypoechoic mass is identified retroareolar measuring 1.0 x 1.1 x 0.7 cm. There are a few low-level ec hoes with minimal through transmission. This is probably due to the deep position of this mass. No in creased vascularity. MM/MM diag LT tomosynthesis [id number] IMPRESSION: BI-RADS: 3 - Probably Benign FOLLOW UP: 6 Month Follow-up Complex cyst LEFT breast retroareolar against the chest wall. There are a few l ow-level echoes throughout this mass. Favor this is probably a complex cyst but difficult to image accurately due to its position. Recommend 6-month LEFT te[address] ultrasound follow-up to ensure no interval change.
== END 2024-03-25 11:10 | disposition home or self-care (01) ==
LOC: RAD 11:09
PROVIDERS: PCP Family Medicine; Visit Provider Family Medicine
DX: R92.8 Other abnormal and inconclusive findings on diagnostic imaging of breast (principal); N63.25 Unspecified lump in the left breast, overlapping quadrants
CPT/HCPCS: 76642; 77061; G0279

== ENCOUNTER 2024-04-26 06:43 | Day surgery (SDC) | payer MEDICAID, SELFPAY ==
[2024-04-26] VITALS (8 sets, daily range): BP systolic 96–139; BP diastolic 61–93; PULSE 83–100; RESP 16; TEMP 36.3–37.1; O2SAT 90–96; BMI 38.0
[2024-04-26] MEDS: sodium chloride 0.9% 1,000 ML 30 ML IV (07:05)
[2024-04-26 07:11] LABS: Glucose Point of Care 209 mg/dL (70-110)
[2024-04-26] MEDS: ketorolac 30 mg/mL INJ IVP (07:25)
[2024-04-26] MEDS: scopolamine 1 mg PATCH 1 PATCH TRANSDERMA (07:25)
[2024-04-26] MEDS: acetaminophen 1,000 MG/100 ML PIGGYBACK 400 MG IV (07:26)
--- NOTE | 2024-04-26 08:47 | ANES.PREANE2 ---
Pre-Anesthetic Assessment Height/Weight: Height 5 ft 3 in Weight 215 lb Temp Pulse Resp BP Pulse Ox O2 Del Method 97.8 F 96 16 139/93 96 Room Air 04/26/24 07:14 04/26/24 07:14 04/26/24 07:14 04/26/24 07:25 04/26/24 07:14 04/26/24 07:14 Preop Diagnosis: Carpal tunnel syndrome Operation Date: 04/26/24 09:00 Proposed Procedures p Carpal Tunnel Release(Left) - Graham Mac, DO Was Beta Rodriguez taken within 24 hours: Yes Was Clonidine taken within 24 hours: N/A Last intake: Intake Last Liquid Date 04/26/24 Last Liquid Time 06:00 Last Solid Date 04/25/24 Last Solid Time 18:30 Social Tobacco and No alcohol Exam alert, oriented x 3, clear to auscultation bilaterally and regular rate & rhythm Airway Submandibular: within normal limits Cervical ROM: within normal limits Mallampati: Class II Dentition: full Comments: Comments: Few missing back molars, denies any loose teeth Anesthetic Plan ASA status: 3 Anesthesia: MAC Other: Patient states that after her shoulder surgery she had increased secretions and was coughing a bunch from breathing tube NPO since yesterday evening History of hypertension on HCTZ, metoprolol. Preop BP 139/93 History of GERD on Protonix Type 2 diabetes, no insulin. Preop BS 209. Will give 3 units insulin Prior Holter monitor showing normal sinus rhythm with very few PVCs Plan for MAC anesthetic with local via surgeon Medications/Allergies Home Medications ?Medication ?Instructions ?Recorded ?Confirmed ?Last Taken ?Type alcohol swabs 1 pad topical TID PRN as needed to 05/16/23 04/01/24 09/20/23 Rx check blood sugar 30 days #100 ea blood-glucose meter (Blood Glucose #1 ea 05/16/23 04/01/24 Unknown Rx Monitoring kit) lancets #100 ea 05/16/23 04/01/24 Unknown Rx lidocaine 5 % topical patch 1 patch topical DAILY 30 days #30 07/25/23 04/25/24 04/24/24 Rx ea diclofenac sodium 50 mg 50 mg PO Q12H PRN pain 90 days 01/01/24 04/25/24 04/19/24 Rx tablet,delayed release #180 tabs duloxetine 60 mg capsule,delayed 120 mg (2 x 60 mg) PO DAILY 90 01/01/24 04/25/24 04/26/24 Rx release (Cymbalta) days #180 caps hydrochlorothiazide 25 mg tablet 25 mg PO DAILY 90 days #90 tabs 01/01/24 04/25/24 04/26/24 Rx loratadine 10 mg tablet 10 mg PO DAILY 90 days #90 tabs 01/01/24 04/25/24 04/25/24 Rx methocarbamol 750 mg tablet 750 mg PO BID PRN pain 90 days 01/01/24 04/25/24 04/25/24 Rx #180 tabs metoprolol succinate 25 mg 25 mg PO DAILY 90 days #90 tabs 01/01/24 04/25/24 04/25/24 Rx tablet,extended release 24 hr pantoprazole 40 mg tablet,delayed 40 mg PO BID 90 days #180 tabs 01/01/24 04/25/24 04/25/24 Rx release pioglitazone 15 mg tablet (Actos) 15 mg PO DAILY 90 days #90 tabs 01/01/24 04/26/24 04/26/24 Rx potassium chloride 8 mEq 8 meq PO BID 90 days #180 caps 01/01/24 04/25/24 04/25/24 Rx capsule,extended release glipizide 5 mg tablet, extended 5 mg PO DAILY 90 days #90 tabs 01/31/24 04/25/24 04/25/24 Rx release 24 hr blood sugar diagnostic (OneTouch #450 strips 02/19/24 04/01/24 Unknown Rx Verio test strips) azithromycin 250 mg tablet 250 mg PO DAILY 04/25/24 04/25/24 04/26/24 History (Zithromax Z-Hayes) Allergies Allergy/AdvReac Type Severity Reaction Status Date / Time No Known Allergies Allergy Verified 04/26/24 06:59 Current Medications Generic Name Dose Route Start Last Admin Trade Name Freq PRN Reason Stop Dose Admin Sodium Chloride 1,000 mls @ 30 mls/hr 04/25/24 10:30 04/26/24 07:05 Sodium Chloride 0.9% IV 04/26/24 10:29 30 mls/hr .Q24H WOO Administration PFSH Anesthesia Medical History Dyslipidemia Family history of coronary artery disease occurring prior to 55 years of age Diabetes mellitus metfromin intolerance GERD (gastroesophageal reflux disease) HTN (hypertension) Surgical History Hx of cholecystectomy History of hysteroscopy Family History Father , [place] x2, htn age 49 from [place] No problems noted. Family/Other , early 50's from heart problems No problems noted. Social History Smoking and tobacco/nicotine status: current every day tobacco/nicotine user (cigarettes) Alcohol intake: never Substance/Drug Use: former Date of last use: Years ago Female Reproductive History Spontaneous abortions: No Data Anesthesia Cardiac Studies: Sestamibi Stress Test (Cardiology) 08/05/21 Cardiac Event Monitor 11/06/23
[2024-04-26] MEDS: insulin regular-human 100 units/1 mL 3 UNIT IVP (08:58)
--- NOTE | 2024-04-26 09:07 | W.PM.OPSFHP ---
Same Day Surgery H&P Indication for Procedure/HPI DATE OF PROCEDURE: April 26, 2024 CHIEF COMPLAINT/INDICATIONFOR SURGICAL PROCEDURE: Left carpal tunnel syndrome PREOP DIAGNOSIS: Left carpal tunnel syndrome PLANNED PROCEDURE: Operation Date: 04/26/24 09:00 Proposed Procedures p Carpal Tunnel Release(Left) - Graham Mac, DO Medications/Allergies* Home Medications ?Medication ?Instructions ?Recorded ?Confirmed ?Type azithromycin 250 mg tablet 250 mg PO DAILY 04/25/24 04/25/24 History (Zithromax Z-Hayes) Allergies/Adverse Reactions Allergy/AdvReac Type Severity Reaction Status Date / Time No Known Allergies Allergy Verified 04/26/24 06:59 Current Medications: Generic Name Dose Route Start Last Admin Trade Name Freq PRN Reason Stop Dose Admin Sodium Chloride 1,000 mls @ 30 mls/hr 04/25/24 10:30 04/26/24 07:05 Sodium Chloride 0.9% IV 04/26/24 10:29 30 mls/hr .Q24H WOO Administration Pertinent History/Comorbid Conditions* Medical History (Updated 03/01/24 @ 17:15 by Jessica Trimble MD) Dyslipidemia Family history of coronary artery disease occurring prior to 55 years of age Diabetes mellitus metfromin intolerance GERD (gastroesophageal reflux disease) HTN (hypertension) Surgical History (Updated 10/02/23 @ 08:36 by RIGO Cifuentes) Hx of cholecystectomy History of hysteroscopy Family History Family/Other, early 50's from heart problems Father, [place] x2, htn age 49 from [place] Social History Smoking and tobacco/nicotine status: current every day tobacco/nicotine user (cigarettes) Alcohol intake: never Substance/Drug Use: former Date of last use: Years ago Pertinent Exam Findings alert, oriented x 3, operative site marked and procedure specific exam findings Please refer to detailed orthopedic examination on 03/04/2024: Left Hand exam-positive Tinel's and positive Phalen's test. no thenar atrophy and no thenar muscle weakness. Full range of motion in fingers and wrist and fingers are warm and well-perfused with normal cap refill under 2 seconds. Radial pulse 2+, no intrinsic muscle weakness noted. Elbow exam-negative Tinel's test Right Hand exam-negative Tinel's and positive Phalen's test. no thenar atrophy no and thenar muscle weakness. Full range of motion in fingers and wrist and fingers are warm and well-perfused with normal cap refill under 2 seconds. Radial pulse 2+, no intrinsic muscle weakness noted. Right Elbow exam-negative Tinel's test Recommendations Surgery/Procedure today Other Plans: Plan to proceed to the OR today for left carpal tunnel release, patient understands the ins and outs procedure the risk benefits complication alternatives surgery and through shared decision making patient like to proceed with surgical invention all questions answered at this time. Coding Level of Care Code Acute Code for Foster Duran
[2024-04-26] MEDS: ceFAZolin 2,000 MG in sodium chloride 0.9% (plus) 50 ML 100 MG IV (09:18)
[2024-04-26] MEDS: lidocaine-epi 1% 20 mL INJ INJECTION (09:43)
[2024-04-26] MEDS: ROPivacaine 0.5% SDV 30 mL 150 MG INJECTION (09:44)
--- NOTE | 2024-04-26 09:46 | P.BOP_ITS ---
Date of Procedure: 04/26/2024 Surgeon: Graham Mac DO Educational Speech Language Clinician(s): None Procedure(s) performed: Left carpal tunnel release Findings of the procedure(s): Patient underwent procedure as planned without issues or complications Estimated blood loss: 2 mL Specimen(s) removed: None Post-operative diagnosis: Left carpal tunnel syndrome
--- NOTE | 2024-04-26 09:47 | P.OP_ITS ---
Operative Report Date of procedure: April 26, 2024 Surgeon: Graham Mac DO Procedure: Preop Diagnosis: Left Carpal Tunnel Syndrome Post-op diagnosis: Same Procedure done: 1. Left carpal tunnel release Surgeon: Graham Mac DO Anesthesia: MAC (Local) Estimated blood loss: 2 mL Tourniquet time 6 minutes IV fluids: See anesthesia record Complications: None Findings: See operative report narrative Condition: stable Disposition: same day Brief History: Patient is a pleasant 48 year-old female with left carpal tunnel syndrome. Patient has been worked up in the outpatient setting findings and physical examination consistent with this. Patient nerve conduction studies consistent with carpal tunnel syndrome. We detailed out patient's risk benefits complication alternatives with surgical and nonsurgical treatment options. Through shared decision making, patient agrees to proceed with surgical intervention of the left carpal tunnel release . Patient understands and agrees with current plan. All questions answered. Patient elects to proceed with surgical intervention with carpal tunnel release. Procedure: Patient seen and evaluated in the preoperative holding area. Consent was reviewed and signed with patient. Correct extremity was marked. Patient was seen evaluated by the anesthesia department once cleared for surgery was brought back to the operative suite. Patient was kept on [facility] in supine position all bony prominences were well-padded patient properly secured to the bed. Left upper extremity was then placed onto an armboard. A nonsterile tourniquet was applied to the left upper arm. Patient underwent anesthesia per the anesthesia department. Patient's left upper extremity was then prepped and draped in standard orthopedic fashion. Final timeout performed. Patient recei paulina appropriate preoperative antibiotics. Under sterile aseptic technique patient received local anesthesia over the preplanned carpal tunnel incision site. Esmarch was used to exsanguinate the left upper extremity and tourniquet was insufflated to 250 mmHg. A standard mini open left carpal tunnel incision was made. Starting distally at Clark's cardinal line in line with the fourth ray extending proximally distal to the wrist crease centered over the carpal tunnel. Sharp scalpel incision was made through skin and subcutaneous tissue. Self-retaining retractor was placed and the palmar fascia was identified. This was then split longitudinally and direct visualization of the transverse carpal ligament was then made. I then utilizing scalpel feathered through the transverse carpal ligament until I entered the floor of the transverse carpal tunnel ligament into the carpal tunnel. Next I switched to dissection scissors and completed my release of the transverse carpal ligament distally with care to protect the recurrent motor branch. I completely released into the palmar fat and until no entrapment was noted distally. Care was made to protect the superficial palmar arch during my distal dissection. Next, nasal speculum placed proximally for retraction of soft tissue on top of the Transverse carpal ligament. Next the contents of the carpal tunnel where protected and and subsequently utilizing dissection scissors under loupe magnification completely released the transverse carpal ligament proximally into the antebrachial fascia. Care was made to protect the palmar cutaneous branch by keeping my scissors curved ulnarly. Once completely released, I then placed my [place] and had appropriate decompression of the carpal tunnel proximally as well as distally. I then inspected the contents of the carpal tunnel which showed an hourglass shape of the median nerve showing its compression. No masses were noted. Tendons appeared healthy. Wound was then thoroughly irr igated. Tourniquet deflated. Hemostasis satisfactory with bipolar electrocautery. I then closed the incision with interrupted nylon stitches. Xeroform 4 x 4's and a bulky soft dressing was applied to the left upper extremity. Patient was then awakened from anesthesia and taken to PACU in stable condition. Patient tolerated procedure without complications. Disposition: Patient taken to PACU in stable condition recovering well. Dressing clean dry and intact. Patient will receive appropriate discharge instructions as well as pain medication postoperatively. Patient to follow-up with me in the office in 2 weeks. They understand they may be weightbearing as tolerated to the left hand. Patient should keep incision clean dry and intact. Patient understands if any questions or concerns may contact the office.
--- NOTE | 2024-04-26 10:45 | ANE.PACU2 ---
Inpatient post-anesthesia follow up: Airway intact: Yes Vital signs: Temperature 98.7 F Pulse Rate 83 Respiratory Rate 16 Blood Pressure 129/81 Pulse Oximetry 96 Oxygen Delivery Me thod Room Air Oxygen Flow Rate Fraction of Inspir ed Oxygen Hydration adequate: Yes Nausea and vomiting: No Pain level: 1 Mental status: Baseline
== END 2024-04-26 10:46 | disposition home or self-care (01) ==
PROVIDERS: PCP Family Medicine; Visit Provider Student in an Organized Health Care Education/Training Program
PROC: (CPT 64721; principal; 2024-04-26 08:50)
DX: G56.02 Carpal tunnel syndrome, left upper limb (principal); I10 Essential (primary) hypertension; K21.9 Gastro-esophageal reflux disease without esophagitis; E78.5 Hyperlipidemia, unspecified; Z90.49 Acquired absence of other specified parts of digestive tract; F17.210 Nicotine dependence, cigarettes, uncomplicated
CPT/HCPCS: 64721; 36416; 82962; J0131; J0690; J1815; J1885; J2250; J2704; J2795; J3010; J7030

== ENCOUNTER 2024-05-29 13:02 | Outpatient (RCR) | payer MEDICAID, SELFPAY | END 2024-06-26 23:59 | disposition home or self-care (01) | LOC: SOT 13:02 | PROVIDERS: Visit Provider Physician Assistant | DX: G56.02 Carpal tunnel syndrome, left upper limb (principal) | CPT/HCPCS: 97110; 97165 ==

== ENCOUNTER → 2024-07-01 13:29 | Outpatient (BNVA) | payer MEDICAID, SELFPAY | PROVIDERS: PCP Family Medicine; Visit Provider Family Medicine | DX: E11.9 Type 2 diabetes mellitus without complications (principal) | CPT/HCPCS: 80048; 83036 ==

== ENCOUNTER 2024-09-23 08:40 | Outpatient (CLI) | payer MEDICAID, SELFPAY ==
--- NOTE | 2024-09-23 08:47 | MM_ITS ---
WS: [id number] DIAGNOSTIC LEFT DIGITAL BREAST TOMOSYNTHESIS WITH CAD LEFT BREAST ULTRASOUND, LIMITED HISTORY: ABNORMAL MAMMOGRAM, 6-month follow-up COMPARISON: 03/25/2024, 02/01/2024, 03/18/2022 Breast parenchyma: The breasts are heterogeneously dense, which may obscure small masses. Reidentified is the ovoid mass in the posterior LEFT breast, deep and just lateral to the nipple measures 14 x 16 x 15 mm. Mass is measuring slightly greater in size than on the prior exam. No suspicious grouping of calcifications. Left breast ultrasound: Ultrasound directed to the posterior LEFT breast near the 3:00 axis. Just lateral to the nipple is an ovoid mass measuring 1.6 x 1.1 x 0.7 cm. This is consistent with a cyst. There is good through transmission. No solid component. This corresponds to the previously described mass. Mass appears more cystic today. MM/MM diag LT tomosynthesis [id number] IMPRESSION: BI-RADS: 2 - Benign FOLLOW UP: 1 Year Follow-up 1. Slight increase in size of the mass in the posterior LEFT breast. Ultrasoun d confirms this is a cyst. No solid component. 2. Recommend return to annual screening mammography. Screening examination adrianne kuldipcarolee be in January 2025.
== END 2024-09-23 08:41 | disposition home or self-care (01) ==
LOC: RAD 08:41
PROVIDERS: PCP Family Medicine; Visit Provider Family Medicine
DX: N60.02 Solitary cyst of left breast (principal)
CPT/HCPCS: 76642; 77061; G0279

== ENCOUNTER → 2024-10-01 10:47 | Outpatient (BNVA) | payer MEDICAID, SELFPAY | PROVIDERS: PCP Family Medicine; Visit Provider Family Medicine | DX: E11.9 Type 2 diabetes mellitus without complications (principal) | CPT/HCPCS: 83036 ==

== ENCOUNTER → 2024-10-08 09:08 | Outpatient (BNVA) | payer MEDICAID, SELFPAY | PROVIDERS: PCP Family Medicine; Visit Provider Nurse Practitioner | DX: M25.562 Pain in left knee (principal) | CPT/HCPCS: 73562 ==

== ENCOUNTER → 2024-11-06 08:55 | Outpatient (BNVA) | payer MEDICAID, SELFPAY | PROVIDERS: PCP Family Medicine; Visit Provider Physician Assistant | DX: M65.331 Trigger finger, right middle finger (principal); G56.01 Carpal tunnel syndrome, right upper limb | CPT/HCPCS: 73130 ==

== ENCOUNTER 2024-12-05 06:24 | Day surgery (SDC) | payer MEDICAID, SELFPAY ==
--- NOTE | 2024-12-04 13:13 | P.ANESASSM_ITS ---
Pre-Anesthetic Assessment Height/Weight: Height 5 ft 6 in Preop Diagnosis: Carpal tunnel syndrome Operation Date: 12/05/24 07:00 Proposed Procedures p Carpal Tunnel Release(Right) - Graham Mac DO s middle finger trigger release(Right) - Graham Mac DO Was Beta Rodriguez taken within 24 hours: Yes Was Clonidine taken within 24 hours: N/A Social Tobacco and No alcohol Exam alert, oriented x 3, clear to auscultation bilaterally and regular rate & rhythm Airway Submandibular: within normal limits Cervical ROM: within normal limits Mallampati: Class II Dentition: full Comments: Comments: Few missing back molars, denies any loose teeth Anesthetic Plan ASA status: 3 Anesthesia: MAC Other: Patient states that after her shoulder surgery she had increased secretions and was coughing a bunch from breathing tube NPO since yesterday evening Patient did well with prior carpal tunnel under MAC anesthesia History of hypertension on HCTZ, metoprolol. Preop BP 154/79 History of GERD on Protonix Type 2 diabetes, no insulin. Prior Holter monitor showing normal sinus rhythm with very few PVCs Plan for MAC anesthetic with local via surgeon Medications/Allergies Home Medications ?Medication ?Instructions ?Recorded ?Confirmed ?Last Taken ?Type blood-glucose meter (Blood Glucose #1 ea 05/16/2310/28 Unknown Rx Monitoring kit) blood sugar diagnostic (OneTouch #450 strips 02/19/24 11/06/24 Unknown Rx Verio test strips) diclofenac sodium 50 mg 50 mg PO Q12H PRN pain 90 da ys 07/01/24 12/04/24 11/28/24 Rx tablet,delayed release #180 tabs Held on 10/08/24. Instructions: Home Medication placed on hold at Doctor's office duloxetine 60 mg capsule,delayed 120 mg (2 x 60 mg) PO DAILY 90 07/01/24 12/04/24 12/04/24 Rx release (Cymbalta) days #180 caps hydrochlorothiazide 25 mg tablet 25 mg PO DAILY 90 day s #90 tabs 07/01/24 12/04/24 12/04/24 Rx loratadine 10 mg tablet 10 mg PO DAILY 90 days #90 t abs 07/01/24 12/04/24 12/04/24 Rx methocarbamol 750 mg tablet 750 mg PO BID PRN pain 90 days 07/01/24 12/04/24 12/04/24 Rx #180 tabs metoprolol succinate 25 mg 25 mg PO DAILY 90 days #90 tabs 07/01/24 12/04/24 12/04/24 Rx tablet,extended release 24 hr pantoprazole 40 mg tablet,delayed 40 mg PO BID 90 days #180 tabs 07/01/24 12/04/24 12/04/24 Rx release pioglitazone 15 mg tablet (Actos) 15 mg PO DAILY 90 da ys #90 tabs 07/01/24 12/04/24 12/04/24 Rx potassium chloride 8 mEq 8 meq PO BID 90 days #180 ca ps 07/01/24 12/04/24 12/04/24 Rx capsule,extended release gabapentin 100 mg capsule 100 mg PO TID PRN pain #90 c aps 10/01/24 12/04/24 12/04/24 Rx glipizide 10 mg tablet, extended 10 mg PO BID 90 days #180 tabs 10/01/24 12/04/24 12/04/24 Rx release 24 hr lancets 33 gauge (TRUEplus Lancets) #100 ea 12/03/24 Unknown Rx lidocaine 5 % topical patch 1 patch topical PRN PRN Pa in 12/04/24 12/04/24 12/04/24 History (Scale Score 1-3) Allergies Allergy/AdvReac Type Severity Reaction Status Date / Time No Known Allergies Allergy Verified 12/04/24 11:51 [facility] Anesthesia Medical History Dyslipidemia Family history of coronary artery disease occurring prior to 55 years of age Diabetes mellitus metfromin intolerance GERD (gastroesophageal reflux disease) HTN (hypertension) Surgical History Hx of cholecystectomy History of hysteroscopy Family History Father , [place] x2, htn age 49 from [place] No problems noted. Family/Other , early 50's from heart problems No problems noted. Social History Smoking and tobacco/nicotine status: current every day tobacco/nicotine user Alcohol intake: never Substance/Drug Use: former Date of last use: Years ago Female Reproductive History Spontaneous abortions: No Data Anesthesia Cardiac Studies: Sestamibi Stress Test (Cardiology) 08/05 Cardiac Event Monitor 11/06/23
[2024-12-05] VITALS (10 sets, daily range): BP systolic 118–154; BP diastolic 71–103; PULSE 67–86; RESP 17–25; TEMP 36.2–36.3; O2SAT 92–99; BMI 34.2
--- NOTE | 2024-12-05 07:06 | W.PM.OPSUD ---
Surgery/Procedure H&P Update DATE OF PROCEDURE: December 05, 2024 DATE H&P PERFORMED: 11/06/24 H&P UPDATE INFORMATION: I have reviewed H&P completed within last 30 days, I have examined patient prior to procedure and No changes to prior documentation PREOP DIAGNOSIS: Right carpal tunnel syndrome, right middle finger trigger PRIMARY INDICATION FOR PROCEDURE: Right carpal tunnel syndrome, right middle finger trigger PLANNED PROCEDURE: Operation Date: 12/05/24 08:15 Proposed Procedures p Carpal Tunnel Release(Right) - Graham Mac DO s middle finger trigger release(Right) - Graham Mac DO
[2024-12-05] MEDS: acetaminophen 1,000 MG/100 ML PIGGYBACK 400 MG IV (07:16)
[2024-12-05] MEDS: ceFAZolin 2,000 MG in sodium chloride 0.9% (plus) 50 ML 100 MG IV (07:40)
[2024-12-05] MEDS: lidocaine-epi 1% 20 mL INJ INJECTION (08:00)
[2024-12-05] MEDS: ROPivacaine 0.5% SDV 30 mL 50 MG INJECTION (08:00)
--- NOTE | 2024-12-05 08:34 | P.BOP_ITS ---
Date of Procedure: 12/05/2024 Surgeon: Graham Mac DO Clinical Academic Allergist(s): Clay Mac PA-C Procedure(s) performed: Right carpal tunnel release Right middle finger trigger release Findings of the procedure(s): Patient underwent procedure as planned without issues or complications taken recovery in stable condition. Estimated blood loss: 3 mL Specimen(s) removed: None Post-operative diagnosis: Right carpal tunnel syndrome, right middle finger trigger
--- NOTE | 2024-12-05 08:35 | P.OP_ITS ---
Operative Report Date of procedure: December 05, 2024 Surgeon: Graham Mac DO Procedure: Preop Diagnosis: Right Carpal Tunnel Syndrome Right middle finger trigger Post-op diagnosis: Same Procedure done: 1. Right carpal tunnel release 2. Right middle finger trigger release Surgeon: Graham Mac DO Anesthesia: MAC (Local) Estimated blood loss: [3]mL Tourniquet time [13]minutes IV fluids: See anesthesia record Complications: None Findings: See operative report narrative Condition: stable Disposition: same day Brief History: Patient is a pleasant [48]year-old [female] with right carpal tunnel syndrome and right middle finger trigger. Patient has been worked up in the outpatient setting findings and physical examination consistent with this. Patient nerve conduction studies consistent with carpal tunnel syndrome. We detailed out patient's risk benefits complication alternatives with surgical and nonsurgical treatment options. Through shared decision making, patient agrees to proceed with surgical intervention of the right carpal tunnel release and right middle finger trigger release. Patient understands and agrees with current plan. All questions answered. Patient elects to proceed with surgical intervention. Procedure: Patient seen and evaluated in the preoperative holding area. Consent was reviewed and signed with patient. Correct extremity was marked. Patient was seen evaluated by the anesthesia department once cleared for surgery was brought back to the operative suite. Patient was kept on [facility] in supine position all bony prominences were well-padded patient properly secured to the bed. Right upper extremity was then placed onto an armboard. A nonsterile tourniquet was applied to the Right upper arm. Patient underwent anesthesia per the anesthesia department. Patient's Right upper extremity was then prepped and draped in standard orthopedic fashion. Final timeout performed. Patient received appropriate preoperative antibiotics. Under sterile aseptic technique patient received local anesthesia over the preplanned carpal tunnel incision site. Esmarch was used to exsanguinate the Right upper extremity and tourniquet was insufflated to 250 mmHg. A standard mini open Right carpal tunnel incision was made. Starting distally at Clark's cardinal line in line with the fourth ray extending proximally distal to the wrist crease centered over the carpal tunnel. Sharp scalpel incision was made through skin and subcutaneous tissue. Self-retaining retractor was placed and the palmar fascia was identified. This was then split longitudinally and direct visualization of the transverse carpal ligament was then made. I then utilizing scalpel feathered through the transverse carpal ligament until I entered the floor of the transverse carpal tunnel ligament into the carpal tunnel. Next I switched to dissection scissors and completed my release of the transverse carpal ligament distally with care to protect the recurrent motor branch. I completely released into the palmar fat and until no entrapment was noted distally. Care was made to protect the superficial palmar arch during my distal dissection. Next I utilized a nasal speculum placed on top of the transverse carpal ligament and utilize this to retract the subcutaneous fat and tissue and under direct loupe magnification was able to identify the transverse carpal ligament. Next I then protected the contents of the carpal tunnel and subsequently utilizing dissection scissors under loupe magnification completely released the transverse carpal ligament proximally into the antebrachial fascia. Care was made to protect the palmar cutaneous branch by keeping my scissors curved ulnarly. Once completely released, I then placed my Greene and had appropriate decompression of the carpal tunnel proximally as well as distally. I then inspected the contents of the carpal tunnel which showed an hourglass shape of the median nerve showing its compression. No masses were noted. Tendons appeared healthy. Wound was then thoroughly irrigated. Wet Ray-Cammy placed in wound bed and then proceeded with right middle finger trigger release. Under sterile aseptic technique local digital block was performed to the right?middle?finger.? Once appropriately anesthetized a standard oblique incision was made centering over the A1 sheri following patient's flexor crea se.? Sharp scalpel incision was made only through skin and then switched to Littler dissection scissors and spread longitudinally directly over the flexor tendon sheath.? I then mobilized both radially and ulnarly and Kasdan retractors were used and placed by my public relations assistant to protect neurovascular bundle.? Next I visualized the A1 sheri and this was incised with a scalpel.? I then switched to dissection scissors and released the A1 sheri both proximally as well as distally to its entirety.? Significant tendon sheath fluid was noted consistent with inflammation.? Mild fraying of the flexor tendons noted but no tear.? At this point I utilized a rag nail and pulled the tendons FDS and FDP out of the incision and no?triggering was noted.? I then had anesthesia wake up the patient and patient was able to actively flex and extend with no?triggering.? This point thorough irrigation was performed.? Tourniquet deflated hemostasis satisfactory with bipolar.? I then subsequently closed the incisions with interrupted nylon suture.? Xeroform 4 x 4's, Kerlix and an Ish wrap was applied for a bulky soft dressing.? Patient was then subsequently awakened from anesthesia and taken to PACU in stable condition tolerated procedure without issues. Disposition: Patient taken to PACU in stable condition recovering well. Dressing clean dry and intact. Patient will receive appropriate discharge instructions as well as pain medication postoperatively. Patient to follow-up with me in the office in 2 weeks. They understand they may be weightbearing as tolerated to the right hand, limit heavy lifting. Patient should keep incision clean dry and intact. Patient understands if any questions or concerns may contact the office.
--- NOTE | 2024-12-05 08:54 | PM.PACU ---
PACU note Narrative: Patient is a 48-year-old female that just underwent a right carpal tunnel and right trigger finger release. Patient transferred to PACU in stable condition. Pain is well controlled. Dressing on hand is dry and in place. Patient's fingers are warm and well-perfused. Patient can wiggle fingers. normal cap refill under 2 seconds. Patient has normal elbow range of motion. Sensation to fingers intact. Exam: awake Disposition: discharged
--- NOTE | 2024-12-05 10:00 | ANE.PACU2 ---
Inpatient post-anesthesia follow up: Airway intact: Yes Vital signs: Temperature 97.4 F Pulse Rate 67 Respiratory Rate 18 Blood Pressure 149/103 Pulse Oximetry 99 Oxygen Delivery Me thod Room Air Oxygen Flow Rate 7 Fraction of Inspir ed Oxygen Hydration adequate: Yes Nausea and vomiting: No Pain level: 1 Mental status: Baseline
== END 2024-12-05 10:00 | disposition home or self-care (01) ==
PROVIDERS: PCP Family Medicine; Visit Provider Student in an Organized Health Care Education/Training Program
PROC: (CPT 64721; principal; 2024-12-05 08:15)
PROC: (CPT 64721; 2024-12-05 08:15)
DX: G56.01 Carpal tunnel syndrome, right upper limb (principal); M65.331 Trigger finger, right middle finger; I10 Essential (primary) hypertension; K21.9 Gastro-esophageal reflux disease without esophagitis; E11.9 Type 2 diabetes mellitus without complications; F17.200 Nicotine dependence, unspecified, uncomplicated
CPT/HCPCS: 64721; 26055; 36416; 82962; J0131; J0690; J1885; J2250; J2704; J2795; J3010; J7030; J9999

== ENCOUNTER 2024-12-18 11:25 | Outpatient (CLI) | payer MEDICAID, SELFPAY | END 2024-12-18 11:26 | disposition home or self-care (01) | LOC: SOT 11:26 | PROVIDERS: PCP Family Medicine; Visit Provider Physician Assistant | DX: Z47.89 Encounter for other orthopedic aftercare (principal); G56.01 Carpal tunnel syndrome, right upper limb | CPT/HCPCS: 97760; L3906 ==

== ENCOUNTER → 2025-01-06 14:48 | Outpatient (BNVA) | payer MEDICAID, SELFPAY | PROVIDERS: PCP Family Medicine; Visit Provider Family Medicine | DX: I10 Essential (primary) hypertension (principal); E11.9 Type 2 diabetes mellitus without complications | CPT/HCPCS: 80053; 80061; 83036 ==

== ENCOUNTER → 2025-01-28 15:02 | Outpatient (BNVA) | payer MEDICAID, SELFPAY | PROVIDERS: PCP Family Medicine; Visit Provider Physician Assistant | DX: M19.012 Primary osteoarthritis, left shoulder (principal); M75.42 Impingement syndrome of left shoulder | CPT/HCPCS: 73030 ==

== ENCOUNTER 2025-02-04 09:02 | Outpatient (CLI) | payer MEDICAID, SELFPAY ==
--- NOTE | 2025-02-04 09:20 | MM_ITS ---
WS: [id number] BILATERAL 3D TOMOSYNTHESIS DIGITAL SCREENING MAMMOGRAPHY WITH CAD CLINICAL INFORMATION: Z12.39 - Encounter for other screening for malignant neop... HISTORY: Screening mammogram. No current complaints. COMPARISON: 2023 TECHNIQUE: Bilateral CC and MLO views. FINDINGS: Scattered fibroglandular densities bilaterally. No suspicious focal mass, asymmetry, calcifications, or architectural distortion. No evidence of malignancy. Lobulated ovoid nodule posterior depth LEFT breast previously demonstrated to represent a complex cyst. A few incidental punctate calcifications. MM/MM [facility] tomosynthesis [id number] IMPRESSION: DENSITY: There are scattered areas of fibroglandular density. BI-RADS: 2 - Benign. FOLLOW UP: 1 Year Follow-up Recommend return to annual screening mammography.
== END 2025-02-04 09:03 | disposition home or self-care (01) ==
LOC: RAD 09:03
PROVIDERS: PCP Family Medicine; Visit Provider Family Medicine
DX: Z12.31 Encounter for screening mammogram for malignant neoplasm of breast (principal); R92.323 Mammographic fibroglandular density, bilateral breasts; R92.1 Mammographic calcification found on diagnostic imaging of breast; N60.02 Solitary cyst of left breast
CPT/HCPCS: 77063; 77067